=== PATIENT | female | born 1980 | race Caucasian/White ===

== ENCOUNTER 2025-01-17 05:06 | Inpatient (IN) | payer BC ==
[2025-01-17] MEDS ORDERED: Naloxone 0.4 MG/ML SDV IVPUSH PRN (05:45)
[2025-01-17] MEDS ORDERED: Nicotine 14 MG/24 Hr Patch TRDERM PRN (05:45)
[2025-01-17] MEDS ORDERED: Sodium Chloride 0.9% 10 ML Syringe FLUSH PRN (05:45)
[2025-01-17 06:07] LABS: BASOPHILS ABSOLUTE AUTO 0.03 K/uL (0.00-0.10); BASOPHILS PERCENT AUTO 0.4 % (0.1-1.3); EOSINOPHILS ABSOLUTE AUTO 0.13 K/uL (0.00-0.40); EOSINOPHILS PERCENT AUTO 1.8 % (0.0-5.4); HEMATOCRIT 31.8 % (34.3-46.0); HEMOGLOBIN 9.9 g/dL (11.2-15.5); IMMATURE GRAN ABSOLUTE AUTO 0.02 K/uL (0.00-0.23); IMMATURE GRAN PERCENT AUTO 0.3 % (0.0-0.7); LYMPHOCYTES ABSOLUTE AUTO 2.04 K/uL (0.8-3.3); LYMPHOCYTES PERCENT AUTO 27.5 % (11.4-47.7); MEAN CORPUSCULAR HEMOGLOBIN 23.3 pg (31.6-35.5); MEAN CORPUSCULAR HGB CONC 31.1 g/dL (31.6-35.5); MONOCYTES PERCENT AUTO 5.4 % (3.3-12.6); NEUTROPHILS ABSOLUTE AUTO 4.79 K/uL (1.0-7.6); NEUTROPHILS PERCENT AUTO 64.6 % (40.0-78.1); PLATELET COUNT,PLT 299 K/uL (130-375); RED BLOOD CELL COUNT 4.24 M/uL (3.77-5.24); WHITE BLOOD CELL COUNT,WBC 7.4 K/uL (3.2-11.0)
[2025-01-17] MEDS: Pantoprazole 40 MG Vial IV SCH (06:17)
[2025-01-17] MEDS: HYDROmorphone 0.5 MG/0.5 ML Syringe IVPUSH PRN (06:18)
[2025-01-17 06:28] LABS: A/G RATIO 1.1 (1.2-2.2); ALANINE AMINOTRANSFERASE,ALT 25 U/L (12-78); ALBUMIN 3.5 g/dL (3.4-5.0); ALKALINE PHOSPHATASE 78 U/L (46-116); ANION GAP 6.4 mmol/L (5.0-14.0); ASPARTATE AMNIOTRANSFERASE,AST 20 U/L (15-37); BILIRUBIN TOTAL 0.4 mg/dL (0.2-1.0); BLOOD UREA NITROGEN,BUN 6 mg/dL (7-18); C-REACTIVE PROTEIN < 0.50 mg/dL (<0.50); CALCIUM 8.9 mg/dL (8.5-10.1); CARBON DIOXIDE,CO2 27 mmol/L (21-32); CHLORIDE,CL 108 mmol/L (100-108); CREATININE 0.7 mg/dL (0.6-1.0); EST CRCL DRUG DOSING (CG) 87.64 mL/min; ESTIMATED GFR 109 mL/min (>60); GLUCOSE RANDOM 98 mg/dL (74-106); MAGNESIUM 1.6 mg/dL (1.8-2.4); POTASSIUM,K 4.7 mmol/L (3.6-5.2); PROTEIN TOTAL,TP 6.6 g/dL (6.4-8.2); SODIUM,NA 141 mmol/L (140-148)
[2025-01-17] MEDS: Sodium Chloride 0.9% 1,000 ML IV SCH (09:46)
[2025-01-17] MEDS: Acetaminophen Soln 650 MG/20.3 ML UD Cup PO PRN (10:36)
[2025-01-17] MEDS: Ondansetron 4 MG/2 ML SDV IV PRN (11:20)
[2025-01-17] MEDS: Ketorolac 15 MG/ML SDV IVPUSH PRN (12:37)
[2025-01-17] MEDS: Benzocaine/Cetylpyridinium/Menthol Lozenge MUCMEM PRN (12:38)
[2025-01-17] MEDS: Zolpidem 5 MG Tab PO PRN (20:32)
[2025-01-18] MEDS: Morphine 2 MG/ML SYRINGE IVPUSH PRN (01:07)
[2025-01-18] MEDS: LORazepam 2 MG/ML SDV IVPUSH PRN (01:56)
[2025-01-18 05:45] LABS: BASOPHILS ABSOLUTE AUTO 0.03 K/uL (0.00-0.10); BASOPHILS PERCENT AUTO 0.4 % (0.1-1.3); EOSINOPHILS PERCENT AUTO 1.2 % (0.0-5.4); HEMATOCRIT 31.6 % (34.3-46.0); HEMOGLOBIN 9.5 g/dL (11.2-15.5); IMMATURE GRAN ABSOLUTE AUTO 0.03 K/uL (0.00-0.23); IMMATURE GRAN PERCENT AUTO 0.4 % (0.0-0.7); LYMPHOCYTES ABSOLUTE AUTO 1.46 K/uL (0.8-3.3); LYMPHOCYTES PERCENT AUTO 17.9 % (11.4-47.7); MEAN CORPUSCULAR HEMOGLOBIN 22.7 pg (31.6-35.5); MEAN CORPUSCULAR HGB CONC 30.1 g/dL (31.6-35.5); MEAN CORPUSCULAR VOLUME 75.6 fL (81.4-99.0); MONOCYTES PERCENT AUTO 6.1 % (3.3-12.6); NEUTROPHILS ABSOLUTE AUTO 6.04 K/uL (1.0-7.6); PLATELET COUNT,PLT 265 K/uL (130-375); RED BLOOD CELL COUNT 4.18 M/uL (3.77-5.24); WHITE BLOOD CELL COUNT,WBC 8.2 K/uL (3.2-11.0)
[2025-01-18 06:00] LABS: ANION GAP 8.9 mmol/L (5.0-14.0); CALCIUM 8.6 mg/dL (8.5-10.1); CREATININE 0.6 mg/dL (0.6-1.0); EST CRCL DRUG DOSING (CG) 102.25 mL/min; POTASSIUM,K 3.9 mmol/L (3.6-5.2)
[2025-01-18] MEDS: Diatrizoate Meglumine/Diatrizoate Sodium 37% 120 ML Bottle PO SCH (12:51)
[2025-01-18] MEDS: Promethazine 12.5 MG in Sodium Chloride 0.9% 50 ML IV PRN (16:10)
[2025-01-18] MEDS ORDERED: Acetaminophen 1,000 MG in Premix Bag 1 BAG IV PRN (18:20)
[2025-01-18] MEDS ORDERED: Lactated Ringers 0 ML ONE (19:14)
[2025-01-18] MEDS ORDERED: Ketorolac 30 MG/ML SDV ONE (19:22)
[2025-01-18] MEDS ORDERED: Sugammadex Sodium 200 MG/2 ML VIAL IV ONE (19:44)
[2025-01-19 05:45] LABS: BASOPHILS PERCENT AUTO 0.2 % (0.1-1.3); EOSINOPHILS PERCENT AUTO 0.2 % (0.0-5.4); HEMATOCRIT 30.1 % (34.3-46.0); HEMOGLOBIN 9.6 g/dL (11.2-15.5); IMMATURE GRAN PERCENT AUTO 0.2 % (0.0-0.7); LYMPHOCYTES ABSOLUTE AUTO 0.66 K/uL (0.8-3.3); LYMPHOCYTES PERCENT AUTO 10.2 % (11.4-47.7); MEAN CORPUSCULAR HEMOGLOBIN 23.4 pg (31.6-35.5); MEAN CORPUSCULAR HGB CONC 31.9 g/dL (31.6-35.5); MEAN CORPUSCULAR VOLUME 73.4 fL (81.4-99.0); MONOCYTES ABSOLUTE AUTO 0.54 K/uL (0.20-0.90); MONOCYTES PERCENT AUTO 8.4 % (3.3-12.6); NEUTROPHILS ABSOLUTE AUTO 5.23 K/uL (1.0-7.6); NEUTROPHILS PERCENT AUTO 80.8 % (40.0-78.1); PLATELET COUNT,PLT 266 K/uL (130-375); WHITE BLOOD CELL COUNT,WBC 6.5 K/uL (3.2-11.0)
[2025-01-19 05:50] LABS: BASOPHILS ABSOLUTE AUTO 0.01 K/uL (0.00-0.10); EOSINOPHILS ABSOLUTE AUTO 0.01 K/uL (0.00-0.40); IMMATURE GRAN ABSOLUTE AUTO 0.01 K/uL (0.00-0.23)
[2025-01-19 05:57] LABS: CALCIUM 9.1 mg/dL (8.5-10.1); CREATININE 0.6 mg/dL (0.6-1.0); EST CRCL DRUG DOSING (CG) 102.25 mL/min; POTASSIUM,K 3.6 mmol/L (3.6-5.2)
[2025-01-19 05:59] LABS: ANION GAP 13.6 mmol/L (5.0-14.0)
[2025-01-19] MEDS ORDERED: Dexamethasone 4 MG/ML SDV ONE (09:33)
[2025-01-19] MEDS ORDERED: Succinylcholine 200 MG/10 ML MDV ONE ×2 (09:33→12:24)
[2025-01-19] MEDS ORDERED: fentaNYL 250 MCG/5 ML SDV ONE (09:33)
[2025-01-19] MEDS ORDERED: Propofol 200 MG/20 ML SDV ONE (09:33)
[2025-01-19] MEDS ORDERED: Rocuronium 50 MG/5 ML Vial ONE ×2 (09:33→11:28)
[2025-01-19] MEDS ORDERED: Glycopyrrolate 0.2 MG/ML 5 ML MDV ONE (09:33)
[2025-01-19] MEDS ORDERED: Ondansetron 4 MG/2 ML SDV ONE (09:33)
[2025-01-19] MEDS ORDERED: Neostigmine Methylsulfate 10 MG/10 ML MDV ONE (09:33)
[2025-01-19] MEDS: Bupivacaine 0.25%/EPINEPHrine 1:200,000 30 ML SDV ONE (10:54)
[2025-01-19] MEDS ORDERED: Lactated Ringers 1,000 ML ONE (11:47)
[2025-01-19] MEDS ORDERED: fentaNYL 100 MCG/2 ML SDV ONE (12:20)
[2025-01-19] MEDS ORDERED: Sugammadex Sodium 200 MG/2 ML VIAL IV ONE (12:25)
[2025-01-19] MEDS: Ciprofloxacin in D5W 400 MG in Premix Bag 1 BAG IV SCH (13:37)
[2025-01-19] MEDS: metroNIDAZOLE/Normal Saline 500 MG in Premix Bag 1 BAG IV SCH (15:16)
[2025-01-19] MEDS: HYDROmorphone 0.5 MG/0.5 ML Syringe IVPUSH PRN (15:49)
[2025-01-19] MEDS: Fluconazole/Normal Saline 400 MG in Premix Bag 1 BAG IV ONE (17:49)
[2025-01-19] MEDS: Heparin Sodium 5,000 Units/ML Vial SUBCUT SCH (20:03)
[2025-01-19] MEDS: Pantoprazole 40 MG Vial IV SCH (20:03)
[2025-01-20 05:54] LABS: HEMATOCRIT 34.1 % (34.3-46.0); HEMOGLOBIN 10.7 g/dL (11.2-15.5); MEAN CORPUSCULAR HEMOGLOBIN 23.3 pg (31.6-35.5); MEAN CORPUSCULAR HGB CONC 31.4 g/dL (31.6-35.5); MEAN CORPUSCULAR VOLUME 74.3 fL (81.4-99.0); PLATELET COUNT,PLT 268 K/uL (130-375); RED BLOOD CELL COUNT 4.59 M/uL (3.77-5.24); WHITE BLOOD CELL COUNT,WBC 7.9 K/uL (3.2-11.0)
[2025-01-20 06:00] LABS: CALCIUM 8.1 mg/dL (8.5-10.1); CREATININE 1.4 mg/dL (0.6-1.0); EST CRCL DRUG DOSING (CG) 43.82 mL/min; POTASSIUM,K 3.8 mmol/L (3.6-5.2)
[2025-01-20 06:33] LABS: ANION GAP 12.8 mmol/L (5.0-14.0)
[2025-01-20 06:58] LABS: BAND ABSOLUTE MAN 2.05 K/uL; BAND PERCENT MAN 26 % (5-11); LYMPHOCYTES ABSOLUTE MAN 0.71 K/uL (0.8-3.3); LYMPHOCYTES PERCENT MAN 9 % (24-44); METAMYELOCYTE PERCENT MAN 5 %; MONOCYTES ABSOLUTE MAN 0.63 K/uL (0.20-0.90); MONOCYTES PERCENT MAN 8 % (2-6); NEUTROPHILS ABSOLUTE MAN 4.11 K/uL (1.0-7.6); SEG NEUTROPHILS PERCENT MAN 52 % (36-66)
[2025-01-20 06:59] LABS: ANISOCYTOSIS MODERATE
[2025-01-20] MEDS ORDERED: Sodium Chloride 0.9% 250 ML IV SCH (10:00)
[2025-01-20] MEDS: Cyclobenzaprine 5 MG Tab PO SCH (13:25)
[2025-01-21 05:59] LABS: HEMATOCRIT 29.1 % (34.3-46.0); HEMOGLOBIN 9.1 g/dL (11.2-15.5); MEAN CORPUSCULAR HEMOGLOBIN 23.2 pg (31.6-35.5); MEAN CORPUSCULAR HGB CONC 31.3 g/dL (31.6-35.5); PLATELET COUNT,PLT 199 K/uL (130-375); RED BLOOD CELL COUNT 3.93 M/uL (3.77-5.24); WHITE BLOOD CELL COUNT,WBC 9.3 K/uL (3.2-11.0)
[2025-01-21 06:17] LABS: BAND ABSOLUTE MAN 0.56 K/uL; BAND PERCENT MAN 6 % (5-11); EOSINOPHILS ABSOLUTE MAN 0.09 K/uL (0.00-0.40); EOSINOPHILS PERCENT MAN 1 % (2-4); LYMPHOCYTES ABSOLUTE MAN 1.02 K/uL (0.8-3.3); LYMPHOCYTES PERCENT MAN 11 % (24-44); MONOCYTES ABSOLUTE MAN 0.37 K/uL (0.20-0.90); MONOCYTES PERCENT MAN 4 % (2-6); NEUTROPHILS ABSOLUTE MAN 7.25 K/uL (1.0-7.6); SEG NEUTROPHILS PERCENT MAN 78 % (36-66)
[2025-01-21 06:22] LABS: CALCIUM 7.8 mg/dL (8.5-10.1); CREATININE 0.9 mg/dL (0.6-1.0); EST CRCL DRUG DOSING (CG) 68.16 mL/min; POTASSIUM,K 3.8 mmol/L (3.6-5.2)
[2025-01-21 06:24] LABS: ANION GAP 13.8 mmol/L (5.0-14.0)
[2025-01-21] MEDS: oxyCODONE 5 MG Tab PO PRN (11:37)
[2025-01-21] MEDS: Acetaminophen Soln 650 MG/20.3 ML UD Cup PO SCH (11:37)
[2025-01-21] MEDS ORDERED: HYDROmorphone 0.5 MG/0.5 ML Syringe IVPUSH PRN (12:30)
[2025-01-21] MEDS: Ketorolac 15 MG/ML SDV IVPUSH SCH (12:38)
[2025-01-22 08:18] LABS: HEMATOCRIT 26.9 % (34.3-46.0); HEMOGLOBIN 8.5 g/dL (11.2-15.5); MEAN CORPUSCULAR HEMOGLOBIN 23.4 pg (31.6-35.5); MEAN CORPUSCULAR HGB CONC 31.6 g/dL (31.6-35.5); MEAN CORPUSCULAR VOLUME 74.1 fL (81.4-99.0); PLATELET COUNT,PLT 168 K/uL (130-375); RED BLOOD CELL COUNT 3.63 M/uL (3.77-5.24); WHITE BLOOD CELL COUNT,WBC 11.6 K/uL (3.2-11.0)
[2025-01-22 08:33] LABS: CALCIUM 7.8 mg/dL (8.5-10.1); CREATININE 1.2 mg/dL (0.6-1.0); EST CRCL DRUG DOSING (CG) 51.12 mL/min; POTASSIUM,K 3.1 mmol/L (3.6-5.2)
[2025-01-22 08:39] LABS: ANION GAP 12.1 mmol/L (5.0-14.0)
[2025-01-22 09:03] LABS: BAND PERCENT MAN 6 % (5-11); EOSINOPHILS ABSOLUTE MAN 0.23 K/uL (0.00-0.40); EOSINOPHILS PERCENT MAN 2 % (2-4); LYMPHOCYTES ABSOLUTE MAN 1.04 K/uL (0.8-3.3); LYMPHOCYTES PERCENT MAN 9 % (24-44); MONOCYTES ABSOLUTE MAN 0.12 K/uL (0.20-0.90); MONOCYTES PERCENT MAN 1 % (2-6); NEUTROPHILS ABSOLUTE MAN 9.51 K/uL (1.0-7.6); POIKILOCYTOSIS MANY; SEG NEUTROPHILS PERCENT MAN 82 % (36-66)
[2025-01-22] MEDS: Furosemide 20 MG/2 ML VIAL IVPUSH ONE (15:41)
[2025-01-22] MEDS: Pantoprazole 40 MG Tab.CR PO SCH (15:41)
[2025-01-22] MEDS: Docusate Sodium 100 MG Cap PO SCH (20:02)
[2025-01-23 00:48] LABS: PREALBUMIN 9.3 mg/dL (20.0-40.0)
[2025-01-23 06:02] LABS: CALCIUM 8.2 mg/dL (8.5-10.1); CREATININE 1.1 mg/dL (0.6-1.0); EST CRCL DRUG DOSING (CG) 55.77 mL/min
[2025-01-23 06:04] LABS: ANION GAP 7.9 mmol/L (5.0-14.0); POTASSIUM,K 2.9 mmol/L (3.6-5.2)
[2025-01-23 06:05] LABS: BASOPHILS ABSOLUTE AUTO 0.05 K/uL (0.00-0.10); BASOPHILS PERCENT AUTO 0.5 % (0.1-1.3); EOSINOPHILS ABSOLUTE AUTO 0.46 K/uL (0.00-0.40); EOSINOPHILS PERCENT AUTO 4.2 % (0.0-5.4); HEMOGLOBIN 8.9 g/dL (11.2-15.5); IMMATURE GRAN ABSOLUTE AUTO 0.13 K/uL (0.00-0.23); IMMATURE GRAN PERCENT AUTO 1.2 % (0.0-0.7); LYMPHOCYTES ABSOLUTE AUTO 1.01 K/uL (0.8-3.3); LYMPHOCYTES PERCENT AUTO 9.2 % (11.4-47.7); MEAN CORPUSCULAR HEMOGLOBIN 23.1 pg (31.6-35.5); MEAN CORPUSCULAR HGB CONC 30.7 g/dL (31.6-35.5); MEAN CORPUSCULAR VOLUME 75.3 fL (81.4-99.0); MONOCYTES ABSOLUTE AUTO 0.51 K/uL (0.20-0.90); MONOCYTES PERCENT AUTO 4.6 % (3.3-12.6); NEUTROPHILS ABSOLUTE AUTO 8.86 K/uL (1.0-7.6); NEUTROPHILS PERCENT AUTO 80.3 % (40.0-78.1); PLATELET COUNT,PLT 164 K/uL (130-375); RED BLOOD CELL COUNT 3.85 M/uL (3.77-5.24)
[2025-01-23] MEDS: Potassium Chloride 10 MEQ in Premix Bag 1 BAG IV SCH (06:36)
[2025-01-23] MEDS: Dextrose 5%-0.9% NaCl with KCl 1,000 ML IV SCH (09:55)
[2025-01-23] MEDS: oxyCODONE 5 MG Tab PO PRN (15:27)
[2025-01-23] MEDS: Acetaminophen 325 MG Tab PO SCH (15:29)
[2025-01-24 05:54] LABS: BASOPHILS PERCENT AUTO 0.3 % (0.1-1.3); EOSINOPHILS ABSOLUTE AUTO 0.24 K/uL (0.00-0.40); EOSINOPHILS PERCENT AUTO 3.3 % (0.0-5.4); HEMATOCRIT 24.1 % (34.3-46.0); HEMOGLOBIN 7.7 g/dL (11.2-15.5); IMMATURE GRAN ABSOLUTE AUTO 0.13 K/uL (0.00-0.23); IMMATURE GRAN PERCENT AUTO 1.8 % (0.0-0.7); LYMPHOCYTES ABSOLUTE AUTO 0.94 K/uL (0.8-3.3); LYMPHOCYTES PERCENT AUTO 12.8 % (11.4-47.7); MEAN CORPUSCULAR HEMOGLOBIN 22.9 pg (31.6-35.5); MEAN CORPUSCULAR VOLUME 71.7 fL (81.4-99.0); MONOCYTES ABSOLUTE AUTO 0.61 K/uL (0.20-0.90); MONOCYTES PERCENT AUTO 8.3 % (3.3-12.6); NEUTROPHILS ABSOLUTE AUTO 5.42 K/uL (1.0-7.6); NEUTROPHILS PERCENT AUTO 73.5 % (40.0-78.1); PLATELET COUNT,PLT 164 K/uL (130-375); RED BLOOD CELL COUNT 3.36 M/uL (3.77-5.24); WHITE BLOOD CELL COUNT,WBC 7.4 K/uL (3.2-11.0)
[2025-01-24 06:06] LABS: CREATININE 0.8 mg/dL (0.6-1.0); EST CRCL DRUG DOSING (CG) 76.68 mL/min; POTASSIUM,K 3.3 mmol/L (3.6-5.2)
[2025-01-24 06:09] LABS: ANION GAP 9.3 mmol/L (5.0-14.0); BASOPHILS ABSOLUTE AUTO 0.02 K/uL (0.00-0.10)
[2025-01-24] MEDS ORDERED: metroNIDAZOLE 250 MG Tab PO SCH (07:30)
[2025-01-24] MEDS: Potassium Chloride 20 MEQ Tab.ER PO ONE (08:09)
[2025-01-24] MEDS: Ciprofloxacin 500 MG Tab PO SCH (09:26)
[2025-01-24] MEDS: metroNIDAZOLE 250 MG Tab PO SCH (14:36)
[2025-01-24] MEDS: oxyCODONE 5 MG Tab PO PRN (16:45)
[2025-01-25 06:11] LABS: BASOPHILS PERCENT AUTO 0.1 % (0.1-1.3); EOSINOPHILS ABSOLUTE AUTO 0.16 K/uL (0.00-0.40); EOSINOPHILS PERCENT AUTO 2.1 % (0.0-5.4); HEMATOCRIT 23.1 % (34.3-46.0); HEMOGLOBIN 7.6 g/dL (11.2-15.5); IMMATURE GRAN ABSOLUTE AUTO 0.27 K/uL (0.00-0.23); IMMATURE GRAN PERCENT AUTO 3.5 % (0.0-0.7); LYMPHOCYTES ABSOLUTE AUTO 1.36 K/uL (0.8-3.3); LYMPHOCYTES PERCENT AUTO 17.6 % (11.4-47.7); MEAN CORPUSCULAR HGB CONC 32.9 g/dL (31.6-35.5); MONOCYTES ABSOLUTE AUTO 0.76 K/uL (0.20-0.90); MONOCYTES PERCENT AUTO 9.8 % (3.3-12.6); NEUTROPHILS ABSOLUTE AUTO 5.17 K/uL (1.0-7.6); NEUTROPHILS PERCENT AUTO 66.9 % (40.0-78.1); PLATELET COUNT,PLT 216 K/uL (130-375); WHITE BLOOD CELL COUNT,WBC 7.7 K/uL (3.2-11.0)
[2025-01-25 06:17] LABS: BASOPHILS ABSOLUTE AUTO 0.01 K/uL (0.00-0.10)
[2025-01-25 06:26] LABS: CALCIUM 8.2 mg/dL (8.5-10.1); CREATININE 0.8 mg/dL (0.6-1.0); EST CRCL DRUG DOSING (CG) 76.68 mL/min; POTASSIUM,K 3.4 mmol/L (3.6-5.2)
[2025-01-25 06:37] LABS: ANION GAP 11.4 mmol/L (5.0-14.0)
[2025-01-25] MEDS: Ondansetron 4 MG Tab.DIS PO PRN (10:50)
[2025-01-25] MEDS: Potassium Chloride 20 MEQ Tab.ER PO ONE (12:47)
== END 2025-01-25 18:21 | disposition home or self-care (01) | DRG 222 ==
LOC: JP.2SS 05:06 → JP.MS 01-18 01:17
PROVIDERS: ADMIT Hospitalist; ATTEND Surgery
PROC: 0D964ZZ Drainage of Stomach, Percutaneous Endoscopic Approach (ICD-10-PCS; principal; 2025-01-17)
DX: K56.609 Unspecified intestinal obstruction, unspecified as to partial versus complete obstruction (principal); E87.6 Hypokalemia; N17.9 Acute kidney failure, unspecified; F41.9 Anxiety disorder, unspecified; F32.A Depression, unspecified; H54.7 Unspecified visual loss; K65.9 Peritonitis, unspecified; D64.9 Anemia, unspecified; F17.200 Nicotine dependence, unspecified, uncomplicated; Z98.890 Other specified postprocedural states; Z90.49 Acquired absence of other specified parts of digestive tract; Z88.0 Allergy status to penicillin; Z88.8 Allergy status to other drugs, medicaments and biological substances
CPT/HCPCS: 36415; 71045; 74018; 80048; 80053; 83605; 83735; 84132; 84134; 85025; 86140; A9270-GY; J0330; J0744; J1100; J1450; J1596; J1644; J1836; J1885; J1938; J2060; J2270; J2405; J2470; J2550; J2704; J2710; J3010; J3480; J3490; J7030; J7120; Q0162